=== PATIENT | female | born 1945 | race Caucasian/White ===

== ENCOUNTER 2023-02-05 09:26 | Emergency (ER) | payer MEDICARE, OTHER ==
[2023-02-05] MEDS ORDERED: Lidocaine 1% 10 ML MDV INJECT ONE (09:44)
[2023-02-05] MEDS ORDERED: Diphtheria,Pertussis(Acell),Tetanus Vaccine 0.5 ML Syringe IM ONE (10:00)
== END 2023-02-05 10:18 | disposition home or self-care (01) ==
LOC: VM.ED 09:26
DX: S81.811A Laceration without foreign body, right lower leg, initial encounter (principal); Z23 Encounter for immunization; Z88.1 Allergy status to other antibiotic agents; Z88.5 Allergy status to narcotic agent; Z88.2 Allergy status to sulfonamides; W26.8XXA Contact with other sharp object(s), not elsewhere classified, initial encounter
CPT/HCPCS: 12001; 90471; 90715; 99282-25; J3490